=== PATIENT | female | born 1990 | race Caucasian/White ===

== ENCOUNTER → 2017-06-16 | Outpatient (CLI) | payer OTHER ==
--- NOTE | 2017-06-16 08:30 | US ---
EXAMINATION TYPE: US gallbladder DATE OF EXAM: 06/16/2017 COMPARISON: NONE CLINICAL HISTORY: Abdominal Pain R10 with K30 dyspepsia. dyspepsia EXAM MEASUREMENTS: Liver Length: 16.5 cm Gallbladder Wall: 0.3 cm CBD: 0.3 cm Right Kidney: 10.5 x 3.9 x 4.3 cm Technical limitations due to patient's body habitus and large amount of overlying bowel content Pancreas: Obscured by bowel gas Liver: attenuating and heterogeneous. Hypoechoic area left lobe = 2.2 x 2.4 x 2.8cm. Hypoechoic are a near alen hepatis = 1.3 x 1.7 x 1.6cm, possible focal sparing. Gallbladder: no evidence of stones Evidence for sonographic Domingo's sign: no CBD: wnl Right Kidney: No hydronephrosis or masses seen Exam suboptimal per technologist as noted above. Visualized liver is heterogeneously hyperechoic in a ppearance without intrahepatic ductal dilatation. Evaluation for focal masses is suboptimal due to th e heterogeneity. More hypodense area centrally is noted. IMPRESSION: Fatty infiltration of liver is present. No gallstones or ultrasound evidence for acute ch olecystitis is noted.
== END | disposition home or self-care (01) ==
LOC: RADUSWWP 07:43
PROVIDERS: ATTEND Family Medicine
DX: K76.0 Fatty (change of) liver, not elsewhere classified (principal); R10.9 Unspecified abdominal pain; K30 Functional dyspepsia
CPT/HCPCS: 76705

== ENCOUNTER 2023-07-03 17:09 | Outpatient (CLI) | payer OTHER ==
[2023-07-03 19:05] LABS: Basophils % (A) 0 %; Eosinophils # (A) 0.1 k/uL (0-0.7); Eosinophils % (A) 1 %; HCT 41.3 % (34.0-46.0); HGB 13.7 gm/dL (11.4-16.0); Lymphocytes # (A) 2.2 k/uL (1.0-4.8); Lymphocytes % (A) 21 %; MCH 29.3 pg (25.0-35.0); MCHC 33.2 g/dL (31.0-37.0); MCV 88.4 fL (80.0-100.0); Mean Platelet Volume 8.6; Monocytes # (A) 0.5 k/uL (0-1.0); Monocytes % (A) 4 %; Neutrophils # (A) 7.8 k/uL (1.3-7.7); Neutrophils % (A) 73 %; Platelet Count 239 k/uL (150-450); RBC 4.68 m/uL (3.80-5.40); RDW 13.9 % (11.5-15.5); WBC 10.7 k/uL (3.8-10.6)
[2023-07-03 19:30] LABS: Appearance,Urine Clear (Clear); Bilirubin,Urine Negative (Negative); Blood,Urine Moderate (Negative); Color,Urine Colorless; Glucose,Urine (UA) Negative (Negative); Ketones,Urine Negative (Negative); Leukocyte Esterase,Urine Moderate (Negative); Mucus,Urine Rare /hpf; Nitrite,Urine Negative (Negative); PH, Urine 6.5 (5.0-8.0); Protein,Urine Negative (Negative); RBC,Urine 1 /hpf (0-5); Squamous Epithelial Cell,Urine 2 /hpf (0-4); Urobilinogen,Urine <2.0 mg/dL (<2.0); WBC,Urine 12 /hpf (0-5)
[2023-07-03 19:31] LABS: ALT 31 U/L (4-34); AST 21 U/L (14-36); African American GFR (CKD) >90 (>60 ml/min/1.73 sqM); Blood Urea Nitrogen 8 mg/dL (7-17); LDH 127 U/L (120-246); Non-African American GFR(CKD) >90 (>60 ml/min/1.73 sqM); Uric Acid 6.2 mg/dL (3.7-7.4)
[2023-07-03 19:43] LABS: Creatinine,Urine Random 52.4 mg/dL; Protein/Creatinine Ratio,Urine 0.229
[2023-07-03 20:28] VITALS: BP 135/95; PULSE 75; RESP 16; TEMP 97.2
--- NOTE | 2023-07-04 09:30 | P.MSEPDOC ---
Presenting Problems - Arrival Data Date of Arrival on Unit: 07/03/23 Time of Arrival on Unit: 17:09 Mode of Transport: Ambulatory - Complaint OB-Reason for Admission/Chief Complaint: Vaginal Bleeding Comment: Pt presents to triage with complaints of pink mucusy discharge starting this. afternoon around 1530, pt states had intercourse today Medical History - Information : 2 Para: 1 Term: 1 : 0 Abortions: Spontaneous or Elective: 0 Number of Living Children: 1 - Gestational Age Gestational Age by VENTURA (wks/days): 36 Weeks and 5 Days - History Complications: Other Comment: Hx of pre-e with previous Review of Systems - Review of Systems Constitutional: No problems Breast: No problems ENT: No problems Cardiovascular: No problems Respiratory: No problems Gastrointestinal: No problems Genitourinary: No problems Musculoskeletal: No problems Neurological: No problems Skin: No problems Vital Signs - Temperature Temperature: 97.2 F Temperature Source: Oral - Pulse Right Brachial Pulse Rate: 75 Pulse Assessment Method: Automatic Cuff - Respirations Respiratory Rate: 16 Oxygen Delivery Method: Room Air - Blood Pressure Right Arm Blood Pressure: 135/95 Blood Pressure Mean: 108 Blood Pressure Source: Automatic Cuff Medical Screen Scoring - Cervical Exam Membranes: Intact - Assessment - Baby A Baseline FHR: 125 Heart Rate - NICHD Category: Category I (Normal) NST: Reactive Physician Notification - Physician Notified Physician Notified Date: 07/03/23 Physician Notified Time: 19:40 Physician: Mana Washington New Order Received: Yes - Notification Comment Comment: labs and blood pressures reviewed, patient to be discharged home. Maternal Triage Index - Stat/Priority 1 Stat Priority 1: No - Urgent/Priority 2 Urgent Priority 2: Yes Provider Notified: Mana Washington Provider Notified Time: 18:08 Criteria Met for Priority 2: elevated bp Disposition - Disposition OB Disposition: Discharge to home Discharge Date: 07/03/23 Discharge Time: 19:47 I agree with the RN Medical Screening Exam: Yes Physician's MSE Comment: I have neither seen nor examined the patient Case reviewed; plan agreed upon as documented in EMR&OBIX.: Yes Diagnosis: MATERNAL CARE FOR PROBLEM, UNSP, THIRD * DO NOT USE *
== END 2023-07-03 19:47 ==
LOC: FBPOP 17:09
PROVIDERS: ATTEND Obstetrics & Gynecology
DX: O36.8131 Decreased fetal movements, third trimester, fetus 1 (principal); Z3A.36 36 weeks gestation of pregnancy; Z88.0 Allergy status to penicillin; Z88.2 Allergy status to sulfonamides; Z79.82 Long term (current) use of aspirin
CPT/HCPCS: 59025; 81001; 82565; 82570; 83615; 84156; 84450; 84460; 84520; 84550; 85025; 99215

== ENCOUNTER 2023-07-19 05:47 | Inpatient (IN) | payer OTHER ==
[2023-07-19] MEDS ORDERED: CARBOPROST TROMETHAMINE 250 MCG/ML 1 ML AMP IM PRN (06:04)
[2023-07-19] MEDS ORDERED: OXYTOCIN 10 UNIT/ML 1 ML VIAL IM PRN (06:04)
[2023-07-19] MEDS ORDERED: LIDOCAINE 0.5% (PF) 5 MG/ML (50 ML SDV) SQ PRN (06:04)
[2023-07-19] MEDS ORDERED: TERBUTALINE 1 MG/ML VIAL SQ PRN (06:04)
[2023-07-19] MEDS ORDERED: miSOPROStoL 200 MCG TAB PO PRN (06:04)
[2023-07-19] MEDS ORDERED: METHYLERGONOVINE 0.2 MG/ML 1 ML AMP IM PRN (06:04)
[2023-07-19] MEDS ORDERED: TRANEXAMIC 1,000 MG/100ML-NACL 1,000 MG in EMPTY BAG 1 BAG IV PRN (06:04)
[2023-07-19] MEDS ORDERED: OXYTOCIN 30 UNITS/500 ML NS 30 UNIT in SALINE 1 500ML.BAG IV SCH (06:15)
[2023-07-19] MEDS: LACTATED RINGERS 1,000 ML IV SCH ×4 (06:28→23:35)
[2023-07-19 06:34] LABS: Basophils % (A) 0 %; Eosinophils # (A) 0.2 k/uL (0-0.7); Eosinophils % (A) 2 %; HCT 41.9 % (34.0-46.0); Lymphocytes # (A) 2.6 k/uL (1.0-4.8); Lymphocytes % (A) 22 %; MCHC 33.5 g/dL (31.0-37.0); MCV 89.7 fL (80.0-100.0); Mean Platelet Volume 8.1; Monocytes # (A) 0.4 k/uL (0-1.0); Monocytes % (A) 4 %; Neutrophils # (A) 8.2 k/uL (1.3-7.7); Neutrophils % (A) 71 %; Platelet Count 225 k/uL (150-450); RBC 4.67 m/uL (3.80-5.40); RDW 13.7 % (11.5-15.5); WBC 11.6 k/uL (3.8-10.6)
--- NOTE | 2023-07-19 08:38 | P.HPOB ---
History of Present Illness H&P Date: 07/19/23 Chief Complaint: Medical induction of labor for chronic hypertension Ms. Quinn is a 33 year old at 39 weeks and 0 days with EDC of 07/26/2023 (by 6 week US) who presents to labor and delivery for medical induction of labor for chronic hypertension. Blood pressures have been well controlled without antihypertensives throughout the . The has otherwise been uncomplicated. The fetus is estimated in the 37%ile by a 37 week US. Obstetric history: 1 FTVD complicated by pre-eclampsia Maternal work-up: blood type O positive, antibody negative, rubella immune, VDRL non-reactive, HBsAg negative, HIV negative, gonorrhea negative, chlamydia negative, 1 hour GTT within normal limits, GBS negative. s/p TDap administration on 05/10/2023. Past medical history: cHTN, non-alcoholic fatty liver disease, abnormal pap smear Past surgical history: Colposcopy Past Medical History Past Medical History: Hypertension Additional Past Medical History / Comment(s): HPV, Non-alcoholic fatty liver disease, Shingles, Irregular heart rhythm, Preeclampsia History of Any Multi-Drug Resistant Organisms: None Reported Smoking Status: Never smoker Medications and Allergies Home Medications Medication Instructions Recorded Confirmed Type Aspirin [Adult Low Dose Aspirin EC] 81 mg PO DAILY 07/03/23 07/19/23 History Loratadine [Claritin] 10 mg PO DAILY 07/03/23 07/19/23 History Vit No.179/Iron/Folic 1 each PO DAILY 07/03/23 07/19/23 History [ Tablet] Allergies Allergy/AdvReac Type Severity Reaction Status Date / Time amoxicillin Allergy Rash/Hives Verified 07/10/23 17:25 cashew nut Allergy Rash/Hives Verified 07/10/23 17:25 Sulfa (Sulfonamide Allergy Rash/Hives Verified 07/10/23 17:25 Antibiotics) Exam Vital Signs Temp Pulse Resp BP Pulse Ox 07/19/23 06:01 97.1 F L 77 16 130/85 96 Intake and Output 07/18/23 07/19/23 07/19/23 22:59 06:59 14:59 Other: Weight 113.398 kg Physical exam is performed. This is a healthy-appearing in no apparent distress. Breathing is non-labored. Abdomen is gravid and non-tender. Cervical exam is 2 cm, 50% effaced, and -3 station. AROM is undertaken revealing clear fluid. Extremities are non-tender and non-edematous. heart tones are category 1 on 6 units of Pitocin. Tocometer is not graphing contractions at this time. Results Result Diagrams: 07/19/23 06:20 Abnormal Lab Results - Last 24 Hours (Table) 07/19/23 Range/Units 06:20 WBC 11.6 H (3.8-10.6) k/uL Neutrophils # 8.2 H (1.3-7.7) k/uL Assessment and Plan Assessment: 33 year old at 39 weeks being medically induced for chronic hypertension (not on antihypertensives) Plan: Admit, NPO, mIVF, Pitocin per protocol, s/p AROM, epidural prn, continuous EFM and tocometer, close monitoring of patient.
[2023-07-19] MEDS ORDERED: NALBUPHINE 10 MG/ML (10 ML MDV) IV PRN (11:54)
--- NOTE | 2023-07-19 19:56 | P.PROBDLV ---
Vaginal Delivery Note - . Vaginal Delivery Note: DATE OF SERVICE: 07/19/2023 PROCEDURE: Normal Vaginal Delivery ATTENDING: Dr. Mana Washington MD ESTIMATED BLOOD LOSS: 400 mL FINDINGS: VFI, Apgars 8/9. Weight 5 poudns 15 ounces (2700 grams) PROCEDURE: Ms. Quinn is a 33 year old at 39 weeks presenting to labor and delivery for medical induction of labor for chronic hypertension. The has been otherwise uncomplicated. For further details, please review the admitting H&P. Pitocin was started per protocol and AROM was undertaken for clear fluid at 827. The patient received epidural anesthesia per her request. Throughout the first stage of labor the patient had a Category I heart t racing with intermittent periods of Category II tracing that were resolved with position changes. The patient was completely dilated at 1907. She pushed effectively. During the heart tracing was Category II with recurrent deep variables, however, delivery was imminent so pushing efforts were continued. The head was delivered over an intact perineum followed by shoulders and body. A viable female infant was delivered at 1920. The was placed on the maternal abdomen and bulb suctioned. Cord was clamped and cut after a 2-minute delay per patient request. The infant was handed off to the pediatric team. Placenta was delivered whole with gentle cord traction at 1925. Oxytocin was started to facilitate uterine tone. Uterine fundus was found to be firm and below the umbilicus upon fundal massage. Thorough examination of the cervix, vagina, periurethral area, and perineum revealed a left lateral second degree laceration with extension to the right labia minora. This laceration was repaired with 2-0 and 3-0 Vicryl in the usual fashion. The patient is stable and allowed to begin the bonding process. Patient stable .
[2023-07-19] MEDS ORDERED: ZOLPIDEM 5 MG TAB PO PRN (19:58)
[2023-07-19] MEDS ORDERED: diphenhydrAMINE 50 MG/ML 1 ML VIAL IVP PRN ×2 (19:58)
[2023-07-19] MEDS ORDERED: diphenhydrAMINE 50 MG CAP PO PRN (19:58)
[2023-07-19] MEDS ORDERED: HYDROCORTISONE 2.5% RECTAL CREAM 30 GM TUBE RECTAL PRN (19:58)
[2023-07-19] MEDS ORDERED: SIMETHICONE 80 MG CHEWABLE PO PRN (19:58)
[2023-07-19] MEDS ORDERED: LANOLIN CREAM 5 GM TUBE TOPICAL PRN (19:58)
[2023-07-19] MEDS ORDERED: BENZOCAINE/MENTHOL SPRAY 1 GM/SPRAY AEROSOL TOPICAL PRN (19:58)
[2023-07-19] MEDS ORDERED: diphenhydrAMINE 25 MG CAP PO PRN (19:58)
[2023-07-19] MEDS: IBUPROFEN 600 MG TAB PO PRN (22:20)
[2023-07-19] MEDS: SENNOSIDES-DOCUSATE SODIUM 1 EACH TAB PO SCH (22:21)
[2023-07-20] MEDS: ACETAMINOPHEN TAB 325 MG TAB PO PRN ×2 (03:31→08:22)
[2023-07-20] MEDS: IBUPROFEN 600 MG TAB PO PRN ×2 (05:25→12:06)
[2023-07-20 06:31] LABS: Basophils % (A) 0 %; Eosinophils # (A) 0.1 k/uL (0-0.7); Eosinophils % (A) 1 %; HCT 39.5 % (34.0-46.0); HGB 12.7 gm/dL (11.4-16.0); Lymphocytes # (A) 2.2 k/uL (1.0-4.8); Lymphocytes % (A) 14 %; MCH 29.1 pg (25.0-35.0); MCHC 32.2 g/dL (31.0-37.0); MCV 90.5 fL (80.0-100.0); Mean Platelet Volume 8.1; Monocytes # (A) 0.6 k/uL (0-1.0); Monocytes % (A) 4 %; Neutrophils # (A) 12.7 k/uL (1.3-7.7); Neutrophils % (A) 80 %; Platelet Count 241 k/uL (150-450); RBC 4.36 m/uL (3.80-5.40); RDW 13.5 % (11.5-15.5); WBC 15.8 k/uL (3.8-10.6)
[2023-07-20] MEDS: SENNOSIDES-DOCUSATE SODIUM 1 EACH TAB PO SCH (08:21)
--- NOTE | 2023-07-20 08:40 | P.DS ---
Providers Date of admission: 07/19/23 05:47 Expected date of discharge: 07/20/23 Attending physician: Mana Washington MD Primary care physician: [facility] Course: 33 year old PPD#1 s/p normal vaginal delivery who is doing well and desires discharge home today. The patient is doing well this morning and had no acute events overnight. She has no complaints this morning. She reports minimal lochia, passing flatus, voiding without difficulty, ambulating, and eating/drinking without nausea or vomiting. doing well at bedside, nursing well. She denies chest pain, shortness of breathing, fevers, or chills overnight. She denies pain or swelling in the legs. <<Postoperative restrictions are reviewed with the patient including pelvic rest for 6 weeks. The patient is encouraged to call the office if she experiences any heavy bleeding, foul- smelling discharge, breast complaints, headache, visual changes, RUQ pain, blood pressures higher than 160/100 or any if she has any other concerns. She will follow up in the office in 1 week for blood pressure check. All questions are answered. Assessment: 33 year old PPD#1 s/p NVD Patient Condition at Discharge: Good Plan - Discharge Summary New Discharge Prescriptions: No Action Loratadine [Claritin] 10 mg PO DAILY Vit No.179/Iron/Folic [ Tablet] 1 each PO DAILY Aspirin [Adult Low Dose Aspirin EC] 81 mg PO DAILY Discharge Medication List Aspirin [Adult Low Dose Aspirin EC] 81 mg PO DAILY 07/03/23 [History] Loratadine [Claritin] 10 mg PO DAILY 07/03/23 [History] Vit No.179/Iron/Folic [ Tablet] 1 each PO DAILY 07/03/23 [History] Follow up Appointment(s)/Referral(s): Mana Washington MD [STAFF PHYSICIAN] - 1 Week (blood pressure check) Activity/Diet/Wound Care/Special Instructions: Instructions 1. Do not begin any exercise program for 3 weeks. 2. Do not resume sexual relations for 6 weeks or longer if uncomfortable. 3. You may take tub baths or showers at any time. 4. You may use tampons if desired after 6 weeks. 5. Keep any areas repaired with stitches clean and dry. 6. If you are not nursing, wear a good fitting, supportive bra during the day and limit fluid intake for at least 1 week to prevent breast engorgement. 7. Call the office, , within the next week to make appointment for your 6 week checkup if it has not already been made. 8. Report any of the following occurrences to the doctor promptly: a. Heavy, excessive bleeding b. Chills, fever c. Burning or frequency of urination d. Pain or redness and breasts if nursing e. Increasing pain or swelling of vulva (stitches). . Discharge Disposition: HOME SELF-CARE
[2023-07-20 16:51] VITALS: BP 118/70; PULSE 81; RESP 16; TEMP 98.4
== END 2023-07-20 20:30 | disposition home or self-care (01) | DRG 806 ==
LOC: 4FBP 05:47
PROVIDERS: ADMIT Obstetrics & Gynecology; ATTEND Obstetrics & Gynecology
PROC: 10907ZC Drainage of Amniotic Fluid, Therapeutic from Products of Conception, Via Natural or Artificial Opening (ICD-10-PCS; principal; 2023-07-19)
PROC: 10E0XZZ Delivery of Products of Conception, External Approach (ICD-10-PCS; principal; 2023-07-19)
PROC: 0UQMXZZ Repair Vulva, External Approach (ICD-10-PCS; principal; 2023-07-19)
PROC: 3E033VJ Introduction of Other Hormone into Peripheral Vein, Percutaneous Approach (ICD-10-PCS; principal; 2023-07-19)
PROC: 0KQM0ZZ Repair Perineum Muscle, Open Approach (ICD-10-PCS; principal; 2023-07-19)
DX: O10.92 Unspecified pre-existing hypertension complicating childbirth (principal); O26.62 Liver and biliary tract disorders in childbirth; O70.1 Second degree perineal laceration during delivery; O76 Abnormality in fetal heart rate and rhythm complicating labor and delivery; K76.0 Fatty (change of) liver, not elsewhere classified; Z88.2 Allergy status to sulfonamides; Z88.0 Allergy status to penicillin; Z79.82 Long term (current) use of aspirin; Z79.899 Other long term (current) drug therapy; Z3A.39 39 weeks gestation of pregnancy; Z37.0 Single live birth
CPT/HCPCS: 85025; 86850; 86900; 86901